=== PATIENT | female | born 1985 | race Caucasian/White ===

== ENCOUNTER 2017-11-03 11:31 | Emergency (ER) | payer MEDICAID | END 2017-11-03 12:30 | disposition home or self-care (01) | LOC: FTE 11:31 → E/R 12:30 | DX: J06.9 Acute upper respiratory infection, unspecified (principal) | CPT/HCPCS: 99284; Z7502 ==

== ENCOUNTER 2018-02-15 13:18 | Emergency (ER) | payer MEDICAID ==
[2018-02-15] MEDS: HYDROmorphONE 0.5 MG/0.5 ML SYG IM (15:24)
[2018-02-15] MEDS: ONDANSETRON (ODT) 4 MG TAB ODT (15:25)
[2018-02-15] MEDS: KETOROLAC 60 MG INJ IM (15:35)
== END 2018-02-15 17:21 | disposition home or self-care (01) ==
LOC: FTE 13:18
DX: M54.5 Low back pain (principal)
CPT/HCPCS: 72100; 81025; 96372; 99284-25